=== PATIENT | female | born 1960 | race Caucasian/White ===

== ENCOUNTER 2020-09-22 17:59 | Inpatient (IN) ==
[2020-09-22 20:30] LABS: ABS Basophils 0.1 10^3/ul (0-0.2); ABS Eosinophils 0.1 10^3/ul (0-0.6); ABS Lymphocytes 3.3 10^3/ul (1.0-4.8); ABS Monocytes 0.6 10^3/ul (0-0.8); ABS Neutrophils 4.3 10^3/ul (1.5-7.7); Eosinophil % 1.6 %; Hematocrit 41 % (35-47); Hemoglobin 14.1 g/dL (12.0-16.0); Lymphocyte % 39.1 %; Mean Corpuscular HGB Conc 35 g/dL (31-36); Mean Corpuscular Hemoglobin 31 pg (27-31); Mean Corpuscular Volume 90 fL (80-97); Mean Platelet Volume 8.7 fL (7.4-10.4); Platelet Count 214 10^3/uL (150-450); Red Blood Count 4.53 10^6 /uL (3.70-4.87); Red Cell Distribution Width 13 % (10-15); White Blood Count 8.4 10^3/uL (3.5-10.8)
[2020-09-22 20:47] LABS: ALT 8 U/L (7-52); AST 12 U/L (13-39); Albumin 4.3 g/dL (3.2-5.2); Albumin/Globulin Ratio 1.7 (1-3); Alkaline Phosphatase 60 U/L (35-149); Anion Gap 8 mmol/L (2-11); Blood Urea Nitrogen 14 mg/dL (6-24); CO2 Carbon Dioxide 27 mmol/L (22-32); Chloride 106 mmol/L (101-111); EGFR African American 96.4 (>60); EGFR Non-African American 79.6 (>60); Globulin 2.5 g/dL (2-4); Glucose 94 mg/dL (70-100); Potassium 3.4 mmol/L (3.5-5.0); Sodium 141 mmol/L (135-145); Total Protein 6.8 g/dL (6.4-8.9)
[2020-09-22 20:53] LABS: Urine Benzodiazepine Screen None Detected (None Detect); Urine Cannabinoids Screen Presumptive Positive (None Detect); Urine Opiates Screen None Detected (None Detect)
[2020-09-22 21:14] LABS: Acetaminophen < 15 mcg/mL; Alcohol, S < 10 mg/dL (<10); Salicylate < 2.50 mg/dL (<30)
[2020-09-22 21:15] LABS: TSH Ultra Thyroid Stim Horm 1.26 mcIU/mL (0.34-5.60)
[2020-09-23] MEDS ORDERED: Al Hydrox/Mg Hydrox/Simet LIQ 30 ML UDC PO PRN (10:54)
[2020-09-23] MEDS ORDERED: Nicotine GUM 2MG FRUIT FLAVOR PO PRN (11:00)
[2020-09-23] MEDS ORDERED: Nicotine Lozenge mini 4 MG LOZNG.MINI MT PRN (11:45)
[2020-09-23] MEDS ORDERED: Hemorrhoidal OINT 1 TUBE PR PRN (11:52)
[2020-09-23] MEDS ORDERED: Albuterol/Ipratropium NEB.SOL (2.5/0.5 MG) 3 ML NEB.SOLN INH PRN (11:52)
[2020-09-23] MEDS ORDERED: Potassium Chlor 10 meq TAB PO ONE (12:03)
[2020-09-23] MEDS: Nicotine PATCH 21 MG/24 HR PATCH TRANSDERM SCH (12:48)
[2020-09-23] MEDS: Albuterol HFA INHALER 8 gm MDI INH PRN ×2 (12:52→21:47)
[2020-09-23] MEDS: Nicotine GUM 4MG FRUIT FLAVOR PO PRN ×3 (12:54→21:05)
[2020-09-23] MEDS: Levetiracetam XR 500 MG TAB.XR PO SCH (14:04)
[2020-09-23] MEDS: Calcium/Vitamin D TAB 250/125 TAB PO SCH ×2 (14:04→21:01)
[2020-09-23] MEDS: Vitamin THERAPEUTIC TAB PO SCH (14:06)
[2020-09-24 07:42] LABS: Calcium 10.1 mg/dL (8.6-10.3); EGFR African American 97.9 (>60); EGFR Non-African American 80.9 (>60); HDL Cholesterol 58.1 mg/dL; Potassium 3.9 mmol/L (3.5-5.0)
[2020-09-24] MEDS: Vitamin THERAPEUTIC TAB PO SCH (08:28)
[2020-09-24] MEDS: Levetiracetam XR 500 MG TAB.XR PO SCH ×2 (08:30→20:00)
[2020-09-24] MEDS: Calcium/Vitamin D TAB 250/125 TAB PO SCH ×2 (08:30→20:01)
[2020-09-24] MEDS: Nicotine PATCH 21 MG/24 HR PATCH TRANSDERM SCH (08:31)
[2020-09-24] MEDS: Polyethylene Glycol 3350 17 GM PACKET PO SCH (08:33)
[2020-09-24] MEDS: Albuterol HFA INHALER 8 gm MDI INH PRN ×2 (08:34→20:04)
[2020-09-24] MEDS: Nicotine GUM 4MG FRUIT FLAVOR PO PRN ×3 (08:35→20:04)
[2020-09-25] MEDS: Albuterol HFA INHALER 8 gm MDI INH PRN ×2 (08:19→20:16)
[2020-09-25] MEDS: Nicotine PATCH 21 MG/24 HR PATCH TRANSDERM SCH (08:20)
[2020-09-25] MEDS: Calcium/Vitamin D TAB 250/125 TAB PO SCH ×2 (08:21→20:12)
[2020-09-25] MEDS: Vitamin THERAPEUTIC TAB PO SCH (08:22)
[2020-09-25] MEDS: Polyethylene Glycol 3350 17 GM PACKET PO SCH ×2 (09:34→17:25)
[2020-09-25] MEDS: Nicotine GUM 4MG FRUIT FLAVOR PO PRN ×3 (12:27→20:17)
[2020-09-25] MEDS: Levetiracetam XR 500 MG TAB.XR PO SCH (20:15)
[2020-09-26] MEDS: Vitamin THERAPEUTIC TAB PO SCH (07:49)
[2020-09-26] MEDS: Nicotine PATCH 21 MG/24 HR PATCH TRANSDERM SCH (07:51)
[2020-09-26] MEDS: Calcium/Vitamin D TAB 250/125 TAB PO SCH ×2 (07:51→20:43)
[2020-09-26] MEDS: Nicotine GUM 4MG FRUIT FLAVOR PO PRN ×4 (08:18→20:45)
[2020-09-26] MEDS: Polyethylene Glycol 3350 17 GM PACKET PO SCH (17:13)
[2020-09-26] MEDS: Levetiracetam XR 500 MG TAB.XR PO SCH (20:41)
[2020-09-26] MEDS: Albuterol HFA INHALER 8 gm MDI INH PRN (20:44)
[2020-09-27] MEDS: Vitamin THERAPEUTIC TAB PO SCH (08:18)
[2020-09-27] MEDS: Nicotine PATCH 21 MG/24 HR PATCH TRANSDERM SCH (08:18)
[2020-09-27] MEDS: Nicotine GUM 4MG FRUIT FLAVOR PO PRN ×3 (08:23→17:27)
[2020-09-27] MEDS: Calcium/Vitamin D TAB 250/125 TAB PO SCH ×2 (09:37→20:03)
[2020-09-27] MEDS: Albuterol HFA INHALER 8 gm MDI INH PRN (09:37)
[2020-09-27] MEDS: Polyethylene Glycol 3350 17 GM PACKET PO SCH (16:01)
[2020-09-27] MEDS: Levetiracetam XR 500 MG TAB.XR PO SCH (20:02)
[2020-09-28] MEDS: Vitamin THERAPEUTIC TAB PO SCH (07:26)
[2020-09-28] MEDS: Nicotine PATCH 21 MG/24 HR PATCH TRANSDERM SCH (07:27)
[2020-09-28] MEDS: Calcium/Vitamin D TAB 250/125 TAB PO SCH ×2 (07:27→20:04)
[2020-09-28] MEDS: Nicotine GUM 4MG FRUIT FLAVOR PO PRN ×3 (08:05→17:50)
[2020-09-28] MEDS ORDERED: Paliperidone SUSTENNA 234 MG/1.5 ML IM ONE (14:00)
[2020-09-28] MEDS: Albuterol HFA INHALER 8 gm MDI INH PRN ×2 (15:23→20:08)
[2020-09-28] MEDS: Polyethylene Glycol 3350 17 GM PACKET PO SCH (16:51)
[2020-09-28] MEDS: Levetiracetam XR 500 MG TAB.XR PO SCH (20:04)
[2020-09-29] MEDS: Albuterol HFA INHALER 8 gm MDI INH PRN ×2 (07:19→15:55)
[2020-09-29] MEDS: Calcium/Vitamin D TAB 250/125 TAB PO SCH ×2 (07:20→20:17)
[2020-09-29] MEDS: Vitamin THERAPEUTIC TAB PO SCH (07:21)
[2020-09-29] MEDS: Nicotine PATCH 21 MG/24 HR PATCH TRANSDERM SCH (07:22)
[2020-09-29] MEDS: Nicotine GUM 4MG FRUIT FLAVOR PO PRN ×4 (08:32→20:21)
[2020-09-29] MEDS: Polyethylene Glycol 3350 17 GM PACKET PO SCH (15:49)
[2020-09-29] MEDS: Levetiracetam XR 500 MG TAB.XR PO SCH (20:19)
[2020-09-30] MEDS: Nicotine GUM 4MG FRUIT FLAVOR PO PRN ×5 (00:41→20:29)
[2020-09-30] MEDS: Calcium/Vitamin D TAB 250/125 TAB PO SCH ×2 (08:51→20:26)
[2020-09-30] MEDS: Vitamin THERAPEUTIC TAB PO SCH (08:52)
[2020-09-30] MEDS: Nicotine PATCH 21 MG/24 HR PATCH TRANSDERM SCH (08:52)
[2020-09-30] MEDS: Albuterol HFA INHALER 8 gm MDI INH PRN ×2 (08:53→20:30)
[2020-09-30] MEDS: Levetiracetam XR 500 MG TAB.XR PO SCH (20:25)
[2020-10-01] MEDS: Nicotine PATCH 21 MG/24 HR PATCH TRANSDERM SCH (07:48)
[2020-10-01] MEDS: Calcium/Vitamin D TAB 250/125 TAB PO SCH ×2 (07:48→20:09)
[2020-10-01] MEDS: Vitamin THERAPEUTIC TAB PO SCH (07:49)
[2020-10-01] MEDS: Nicotine GUM 4MG FRUIT FLAVOR PO PRN ×3 (08:11→20:52)
[2020-10-01] MEDS: Polyethylene Glycol 3350 17 GM PACKET PO SCH (09:56)
[2020-10-01 11:15] LABS: Urine Appearance Clear; Urine Bilirubin Negative (Negative); Urine Blood Negative (Negative); Urine Color Yellow; Urine Glucose Negative (Negative); Urine Ketones Negative (Negative); Urine Nitrite Negative (Negative); Urine Protein Negative (Negative); Urine Specific Gravity 1.005 (1.002-1.030); Urine Urobilinogen Negative (Negative)
[2020-10-01] MEDS ORDERED: Paliperidone SUSTENNA 156 MG/1 ML IM ONE (12:00)
[2020-10-01] MEDS: Levetiracetam XR 500 MG TAB.XR PO SCH (20:09)
[2020-10-02] MEDS: Polyethylene Glycol 3350 17 GM PACKET PO SCH (09:35)
[2020-10-02] MEDS: Calcium/Vitamin D TAB 250/125 TAB PO SCH ×2 (09:36→20:16)
[2020-10-02] MEDS: Vitamin THERAPEUTIC TAB PO SCH (09:37)
[2020-10-02] MEDS: Nicotine PATCH 21 MG/24 HR PATCH TRANSDERM SCH (09:37)
[2020-10-02] MEDS: Nicotine GUM 4MG FRUIT FLAVOR PO PRN ×3 (10:57→18:14)
[2020-10-02] MEDS: Albuterol HFA INHALER 8 gm MDI INH PRN ×2 (10:57→20:20)
[2020-10-02] MEDS: Levetiracetam XR 500 MG TAB.XR PO SCH (20:18)
[2020-10-03] MEDS: Polyethylene Glycol 3350 17 GM PACKET PO SCH (08:42)
[2020-10-03] MEDS: Calcium/Vitamin D TAB 250/125 TAB PO SCH ×2 (08:43→20:36)
[2020-10-03] MEDS: Nicotine PATCH 21 MG/24 HR PATCH TRANSDERM SCH (08:45)
[2020-10-03] MEDS: Vitamin THERAPEUTIC TAB PO SCH (08:45)
[2020-10-03] MEDS: Albuterol HFA INHALER 8 gm MDI INH PRN ×2 (11:47→20:40)
[2020-10-03] MEDS: Levetiracetam XR 500 MG TAB.XR PO SCH (20:39)
[2020-10-04] MEDS: Nicotine PATCH 21 MG/24 HR PATCH TRANSDERM SCH (08:23)
[2020-10-04] MEDS: Calcium/Vitamin D TAB 250/125 TAB PO SCH (08:24)
[2020-10-04] MEDS: Polyethylene Glycol 3350 17 GM PACKET PO SCH (08:26)
[2020-10-04] MEDS: Vitamin THERAPEUTIC TAB PO SCH (08:26)
[2020-10-04 12:08] VITALS: BP 121/69
== END 2020-10-04 13:00 | disposition home or self-care (01) | DRG 750 ==
LOC: ED 17:59 → BSU 09-23 08:16
PROVIDERS: ADMIT Psychiatry & Neurology Psychiatry; ATTEND Psychiatry & Neurology Psychiatry